=== PATIENT | male | born 1985 | race Caucasian/White ===

== ENCOUNTER 2021-04-26 17:32 | Emergency (ER) | payer OTHER ==
[~2021-04-26] VITALS: Ht 172.7 cm; Wt 49.4 kg
[2021-04-26 18:18] VITALS: BP 108/82
--- NOTE | 2021-04-26 18:34 | NUR ---
EKG PERFORMED IN TRIAGE ROOM. EKG READS SINUS RHYTHM @ 70
[2021-04-26] MEDS ORDERED: HYDROXYZINE HYDROCHLORIDE 25 MG TAB PO STA (18:37)
--- NOTE | 2021-04-26 19:15 | NUR ---
patient left without providing urine
--- NOTE | 2021-04-26 19:15 | NUR ---
Patient discharged with v/s stable. Written and verbal after care instructions given and explained. Patient verbalized understanding. Ambulatory with steady gait. All questions addressed prior to discharge. Advised to follow up with PMD. Patient left without discharged paperwork
[2021-04-26 20:00] LABS: BARBITURATE, URINE NEGATIVE ng/ml (NEG <=200); BENZODIAZEPINE, URINE POSITIVE ng/mL (NEG <=200); CANNABINOID, URINE NEGATIVE ng/mL (NEG <=50); COCAINE, URINE NEGATIVE ng/mL (NEG <=300); OPIATE, URINE NEGATIVE ng/mL (NEG <=2000); PHENCYCLIDINE SCREEN,URINE NEGATIVE ng/mL (NEG <=25)
== END 2021-04-26 19:15 | disposition home or self-care (01) ==
LOC: MED 17:32
DX: R07.89 Other chest pain (principal)
CPT/HCPCS: 36415; 71045; 80305; 84484; 93005; 99285

== ENCOUNTER 2021-06-24 11:32 | Emergency (ER) | payer OTHER, SELFPAY ==
[~2021-06-24] VITALS: Ht 172.7 cm; Wt 53.5 kg
[~2021-06-24 11:32] MED LIST: ELVI1TAB2 PO; LORA-476 PO; SULF-280 PO; [UNRECOGNIZED DRUG - CODE] IV; [UNRECOGNIZED DRUG - OTHER] PO
[2021-06-24 11:50] VITALS: BP 95/56
--- NOTE | 2021-06-24 11:55 | NUR ---
BIBS C/O LEFT UPPER PICC LINE LEAKING X TODAY. PICC LINE PLACED ON MONDAY AFTER DISCHARGE FROM THIS HOSPITAL. PMH: SYPHILIS
--- NOTE | 2021-06-24 11:56 | NUR ---
PT AMBULATED TO LOBBY
--- NOTE | 2021-06-24 15:58 | NUR ---
supervisor harvesting notified about the PICC line order. Will call picc line nurse. Plan to dc patient home.
--- NOTE | 2021-06-24 16:01 | NUR ---
Pt updated that PICC line nurse has been called and will wait for nurse to arrive for new PICC line insertion.
--- NOTE | 2021-06-24 19:47 | NUR ---
CALLED HOUSE [facility] TO GET ETA ON PICC LINE NURSE. [facility] WILL CALL AGAIN TO GET STATUS
--- NOTE | 2021-06-24 20:28 | NUR ---
PT AMBULATED TO BED 07.
[2021-06-24] MEDS ORDERED: CLINDAMYCIN 600 MG/4 ML VIAL ONE (22:15)
--- NOTE | 2021-06-24 22:29 | NUR ---
CLYNDAMYCIN PULLED FOR WRONG PATIENT. PATIENT RECIVING MEDICATION IS [id number].
--- NOTE | 2021-06-24 22:48 | NUR ---
RECIVED PATIENT ALERT AND ORIENTED X 4. PATIENT BIB SELF FOR C/O MALFUNCTIONING PICC LINE IN L UPPER ARM. PATIENT CURRENTLY RECIVING ABT RX FOR TREATMENT OF SYPHILIS IN SPINE. PATIENT DENIES HAVING ANY C/O PAIN AT THIS TIME. RESPIRATIONS ARE EVEN AND UNLABORED. SKIN IS WARM AND DRY TO TOUCH. ALL NEEDS MET AT THIS TIME. MEDHX: HIV, ANXIETY
--- NOTE | 2021-06-24 22:59 | NUR ---
ESTELA SWAB COLLECTED AND SENT TO LAB.
--- NOTE | 2021-06-24 23:40 | NUR ---
Patient signed consent for midline insertion. ERMD explained procedure.
--- NOTE | 2021-06-25 00:04 | NUR ---
PICC LINE NURSE AT BEDSIDE.
--- NOTE | 2021-06-25 00:24 | NUR ---
Midline picc inserted in PRATIMA , double lumen via sterile technique. Patient tolerated well.
[2021-06-25 01:02] VITALS: BP 110/70
--- NOTE | 2021-06-25 01:02 | NUR ---
Patient discharged with v/s stable. Written and verbal after care instructions given and explained. Patient verbalized understanding. Ambulatory with steady gait. All questions addressed prior to discharge. Advised to follow up with PMD. IV removed, catheter intact and site benign. Applied folded 4x4 gauze and tape to stop bleeding. Old PICC removed, catheter intact and site benign. Applied folded 4x4 gauze and tape to stop bleeding.
== END 2021-06-25 01:02 | disposition home or self-care (01) ==
LOC: MED 11:32
DX: T82.524A Displacement of infusion catheter, initial encounter (principal); Z20.822 Contact with and (suspected) exposure to COVID-19; Z86.69 Personal history of other diseases of the nervous system and sense organs; Z79.2 Long term (current) use of antibiotics; Z79.899 Other long term (current) drug therapy
CPT/HCPCS: 71045; 99284; J3490